=== PATIENT | female | born 1955 | race African-American/Black ===

== ENCOUNTER 2016-05-13 01:37 | Emergency (ER) | payer MEDICARE, MEDICAID ==
[~2016-05-13] VITALS: Ht 162.6 cm; Wt 81.6 kg
[~2016-05-13 01:37] MED LIST: ACETAMINOPHEN650 M4 ORAL; AMLODIPINE BESY10 MG ORAL; AMOXICILLI250 MG/5 M ORAL; ARTIFICIAL TEAR15 ML BOTH EYES; ATORVASTATIN CA10 MG ORAL; CATAPRES0.1 MG ORAL; CLOPIDOGREL75 MG ORAL; GABAPENTIN100 MG ORAL; GABAPENTIN400 MG ORAL; HYZAAR 50-12.51 EACH ORAL; IPRAT-ALBUT 0.5-3 ML IH; KEFLEX500 M1 ORAL; KEPPRA1000 MG ORAL; KEPPRA500 MG ORAL; LAMICTAL100 MG ORAL; LATANOPROST2.5 ML BOTH EYES; LEVETIRACETAM500 MG ORAL; LISINOPRIL2.5 MG ORAL; LISINOPRIL5 MG ORAL; MILK OF MA400 MG/51 ORAL; MINTOX SUSPENS355 ML PO; MIRTAZAPINE15 M3 ORAL; NAPROXEN500 M1 ORAL; NORVASC2.5 MG ORAL; PANTOPRAZOLE SO40 MG ORAL; PROAIR HFA8.5 GM INH; PROTONIX40 MG ORAL; TAB-A-VITE1 EACH ORAL; XANAX0.5 MG ORAL
--- NOTE | 2016-05-13 01:54 | Emergency Room Report ---
History of Present Illness General Chief Complaint: Pain Source: Patient, EMS Present Illness HPI Patient presents with severe right leg pain. She's had this pain in the past. She says that there might be oral medication for pain at the residential facility where she is. She claims that she was recently admitted for observation after having uncontrolled seizures. She does take her medication for seizures. She denies a recent seizure in the last 24-48 hours. She denies any trauma, fever, rashes. She's had pain like this before. 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 She resides at an SNF. She has RLS neuropathy R leg (per chart). No ARNOLD, fever, NVD, cough, dyspnea, chest pain, rashes, trauma. In past has had seizures. No evidence of recent seizure activity. Allergies: Coded Allergies: No Known Allergies (Unverified , 05/13/16) Patient History Past Medical History: see triage record, CVA/TIA, other - aneurism Past Surgical History: other - craneotomy Social History: Denies: alcohol use, drug use, smoking Social History Narrative SNF - NO Code Last Menstrual Period: UNK Now: No Reviewed Nursing Documentation: PMH: Agreed, PSxH: Agreed Nursing Documentation-PMH Hx Hypertension: Yes Hx Pacemaker: No Hx Asthma: No Hx COPD: No Hx Cancer: No Hx Gastrointestinal Problems: Yes - GASTRITIS, UTI Hx Dialysis: No - S/P CRANIOTOMY Hx Neurological Problems: Yes - DEPRESSION Hx Cerebrovascular Accident: Yes - RIGHT SIDED WEAKNESS Hx Seizures: Yes Review of Systems All Other Systems: negative except mentioned in HPI Physical Exam Vital Signs Date Time Temp Pulse Resp B/P Pulse Ox O2 Delivery O2 Flow Rate FiO2 05/13/16 01:42 97.5 76 18 137/102 95 Room Air Sp02 EP Interpretation: reviewed, normal General Appearance: well appearing, no apparent distress, GCS 15 Head: normocephalic Eyes: bilateral eye PERRL, bilateral eye normal inspection ENT: moist mucus membranes Neck: full range of motion, supple Respiratory: chest non-tender, lungs clear, normal breath sounds Cardiovascular #1: regular rate, rhythm, no edema, other - R foot with increased circulation, no erythema Cardiovascular #2: 2+ radial (R) Gastrointestinal: normal inspection, normal bowel sounds, non tender, no mass, non-distended Musculoskeletal: back normal, no calf tenderness, other - RUE contactures. Sl extensor contraction R foot Neurologic: alert, oriented x3, responsive, sensory intact - states feels R side but feels different, motor weakness - R sided Psychiatric: anxious Reflexes: 2+ knee (R), 2+ knee (L) Skin: warm/dry, other - see circ Medical Decision Making Diagnostic Impression: Primary Impression: Right leg pain Additional Impression: H/O craniotomy ER Course R leg pain - h/o restless leg syndrome. Leg exam more c/w reflex sympathetic dystrophy. Need eval with labs. No deform, so xrays not indicated (but will check pelvis). Exam against PE and cellulitis. Will treat with analgesia. Consider neuropathic pain. Exam more c/w reflex sympathetic dystrophy as opposed to restless leg syndrome. Labs unremarkable. Xrays, no deform. Patient rest calmly. No more pain. No medical emergency. Focus on symptomatic treatment. Patient stable for outpatient observation and treatment. Laboratory Tests Test 05/13/16 02:02 05/13/16 02:30 White Blood Count 9.0 K/UL (4.8-10.8) Red Blood Count 4.27 M/UL (4.20-5.40) Hemoglobin 13.5 G/DL (12.0-16.0) Hematocrit 40.0 % (37.0-47.0) Mean Corpuscular Volume 94 FL (80-99) Mean Corpuscular Hemoglobin 31.7 PG (27.0-31.0) H Mean Corpuscular Hemoglobin Concent 33.8 G/DL (32.0-36.0) Red Cell Distribution Width 11.8 % (11.6-14.8) Platelet Count 205 K/UL (150-450) Mean Platelet Volume 7.8 FL (6.5-10.1) Neutrophils (%) (Auto) 44.9 % (45.0-75.0) L Lymphocytes (%) (Auto) 42.1 % (20.0-45.0) Monocytes (%) (Auto) 9.6 % (1.0-10.0) Eosinophils (%) (Auto) 2.2 % (0.0-3.0) Basophils (%) (Auto) 1.2 % (0.0-2.0) Prothrombin Time 9.5 SEC (9.30-11.50) Prothrombin Time INR 0.9 (0.9-1.1) PTT 27 SEC (23-33) Sodium Level 140 mEQ/L (135-145) Potassium Level 4.7 mEQ/L (3.4-4.9) Chloride Level 98 mEQ/L (98-107) Carbon Dioxide Level 25 mEQ/L (20-30) Anion Gap 17 (5-15) H Blood Urea Nitrogen 12 mg/dL (7-23) Creatinine 0.8 mg/dL (0.5-0.9) Estimate Glomerular Filtration Rate > 60 mL/min (>60) Glucose Level 109 mg/dL (74-106) H Calcium Level 9.7 mg/dL (8.6-10.2) Total Bilirubin < 0.2 mg/dL (0.0-1.2) Aspartate Amino Transferase (AST) 21 U/L (5-40) Alanine Aminotransferase (ALT) 18 U/L (3-33) Alkaline Phosphatase 111 U/L (35-104) H Total Creatine Kinase 75 U/L (26-140) Troponin I < 0.30 ng/mL (<=0.30) Pro-B-Type Natriuretic Peptide 18 pg/mL (0-125) Total Protein 6.8 g/dL (6.6-8.7) Albumin 3.8 g/dL (3.5-5.2) Globulin 3.0 g/dL Albumin/Globulin Ratio 1.2 (1.0-2.7) Urine Color Pale yellow Urine Appearance Clear Urine pH 8 (4.5-8.0) Urine Specific [place] 1.010 (1.005-1.035) Urine Protein Negative (NEGATIVE) Urine Glucose (UA) Negative (NEGATIVE) Urine Ketones Negative (NEGATIVE) Urine Occult Blood Negative (NEGATIVE) Urine Nitrite Negative (NEGATIVE) Urine Bilirubin Negative (NEGATIVE) Urine Urobilinogen Normal MG/DL (0.0-1.0) Urine Leukocyte Esterase 1+ (NEGATIVE) H Urine RBC 0-2 /HPF (0 - 2) Urine WBC 2-4 /HPF (0 - 2) Urine Squamous Epithelial Cells Few /LPF (NONE/OCC) Urine Bacteria Few /HPF (NONE) EKG Diagnostic Results Rate: normal Rhythm: NSR ST Segments: no acute changes Rhythm Strip Diag. Results EP Interpretation: yes Rhythm: NSR, no PVC's, no ectopy Chest X-Ray Diagnostic Results EP Interpretation: Yes Findings: no consolidation, no effusion, no pneumothorax, no acute cardiopulmonary disease Number of Views: 1 Other X-Ray Diagnostic Results Other X-Ray Diagnostic Results : X-Ray Ordered: pelvis EP Interpretation: Yes Findings: no fractures, no dislocation, no soft tissue swelling, other - no unusual calcifications Number of Views: 1 Status: improved Disposition: XFER SNF Condition: Improved Scripts Tramadol Hcl* (ULTRAM*) 50 Mg Tablet 50 MG ORAL Q6H Y for For Pain, #10 TAB 0 Refills Prov: Jordi Lugo M.D. 05/13/16 Jordi Lugo M.D. May 13, 2016 01:54
[2016-05-13] MEDS ORDERED: Morphine Sulfate 2mg/ml Inj IVP ONE (02:00)
[2016-05-13] MEDS ORDERED: TRAZODONE HCL100 MG ORAL (02:05)
[2016-05-13 02:10] VITALS: BP 138/95
[2016-05-13 02:23] LABS: BASOPHILS % (AUTO) 1.2 % (0.0-2.0); EOSINOPHILS % (AUTO) 2.2 % (0.0-3.0); LYMPHOCYTES % (AUTO) 42.1 % (20.0-45.0); MEAN CORPUSCULAR HEMOGLOBIN 31.7 PG (27.0-31.0); MEAN CORPUSCULAR HGB CONC 33.8 G/DL (32.0-36.0); MEAN CORPUSCULAR VOLUME 94 FL (80-99); MEAN PLATELET VOLUME 7.8 FL (6.5-10.1); MONOCYTES % (AUTO) 9.6 % (1.0-10.0); NEUTROPHILS % (AUTO) 44.9 % (45.0-75.0); PLATELET COUNT 205 K/UL (150-450); RED BLOOD COUNT 4.27 M/UL (4.20-5.40); RED CELL DISTRIBUTION WIDTH 11.8 % (11.6-14.8)
[2016-05-13 02:26] LABS: INR 0.9 (0.9-1.1); PROTHROMBIN TIME 9.5 SEC (9.30-11.50)
[2016-05-13 02:37] LABS: ALANINE AMINOTRANSFERASE 18 U/L (3-33); ALBUMIN/GLOBULIN RATIO 1.2 (1.0-2.7); ANION GAP 17 (5-15); ASPARTATE AMINO TRANSFERASE 21 U/L (5-40); CALCIUM 9.7 mg/dL (8.6-10.2); CARBON DIOXIDE 25 mEQ/L (20-30); CHLORIDE 98 mEQ/L (98-107); CREATININE 0.8 mg/dL (0.5-0.9); GLOMERULAR FILTRATION RATE > 60 mL/min (>60); HEMOLYSIS 108; POTASSIUM 4.7 mEQ/L (3.4-4.9); SODIUM 140 mEQ/L (135-145); TOTAL PROTEIN 6.8 g/dL (6.6-8.7)
[2016-05-13 02:38] LABS: TROPONIN I < 0.30 ng/mL (<=0.30)
[2016-05-13 02:47] LABS: APPEARANCE,URINE CLEAR; KETONES,URINE NEGATIVE (NEGATIVE); LEUKOCYTE ESTERASE ,URINE 1+ (NEGATIVE); NITRITE,URINE NEGATIVE (NEGATIVE); PH,URINE 8 (4.5-8.0); PROTEIN,URINE NEGATIVE (NEGATIVE); UROBILINOGEN,URINE NORMAL MG/DL (0.0-1.0)
[2016-05-13 03:28] LABS: BACTERIA,URINE FEW /HPF; RBC,URINE 0-2 /HPF (0 - 2); SQUAMOUS EPITHELIAL CELL,UR FEW /LPF (NONE/OCC)
[2016-05-13 04:35] VITALS: BP 107/60
[2016-05-13] MEDS ORDERED: TRAMADOL HCL50 MG ORAL (05:40)
[2016-05-13 06:20] VITALS: BP 112/68
[2016-05-13 08:44] VITALS: BP 99/68
[2016-05-13 08:45] VITALS: BP 112/68
--- NOTE | 2016-05-13 19:41 | Cardiology Report ---
APPROVED REPORT EKG Measurement Heart [id number] CT [id number] [id number] Normal sinus rhythm Cannot rule out Anterior infarct, age undetermined Abnormal ECG
--- NOTE | 2016-05-15 15:54 | Diagnostic Imaging Report ---
Indications: Right-sided pelvic pain Technique: AP pelvis. Findings: Comparison: None No fracture, dislocation, joint space widening , lytic destruction, periosteal reaction , surrounding soft tissue swelling/foreign body/gas, or other acute changes are identified. Suggestion of disc space narrowing with marginal osteophyte formation lower lumbar spine. IMPRESSION: No evidence of acute abnormality Suggestion of degenerative spondylosis.
--- NOTE | 2016-05-15 15:54 | Diagnostic Imaging Report ---
Indications: Chest pain Technique: Portable AP chest Findings: Comparison: 03/02/2016 Inspiratory effort has improved. Cardiac silhouette remains upper limits of normal in size. Pulmonary vascular redistribution, bilateral interstitial prominence have decreased. Hazy opacity left lower lung has resolved. No pleural abnormalities demonstrated. Aortic arch calcification again noted. IMPRESSION: No current evidence of acute cardiopulmonary disease. Improvement in previous changes may be technical or represents resolution of mild congestive change, as well as resolution of left lung base atelectasis versus pneumonia
== END 2016-05-13 08:30 ==
LOC: EDUNIT# 01:37 → EDBD 01:37 → EMR 02:31
DX: M79.604 Pain in right leg (principal); G25.81 Restless legs syndrome; I69.851 Hemiplegia and hemiparesis following other cerebrovascular disease affecting right dominant side; I10 Essential (primary) hypertension; F32.9 Major depressive disorder, single episode, unspecified; G40.909 Epilepsy, unspecified, not intractable, without status epilepticus
CPT/HCPCS: 36415; 71010; 72170; 80053; 81003; 82550; 82962; 83880; 84484; 85025; 85610; 85730; 93005; 96374; 96375; 99284; J2270; J2405

== ENCOUNTER 2017-10-19 06:57 | Inpatient (IN) | payer MEDICARE, OTHER, MEDICAID ==
[~2017-10-19] VITALS: Ht 167.6 cm; Wt 86.0 kg
[~2017-10-19 06:57] MED LIST changes: +TRAMADOL HCL50 MG ORAL; +TRAZODONE HCL100 MG ORAL
[2017-10-19] MEDS ORDERED: ARTIFICIAL TEAR15 ML BOTH EYES (07:03)
[2017-10-19] MEDS ORDERED: FLUOXETINE HCL40 MG ORAL (07:03)
[2017-10-19] MEDS ORDERED: HYDROCHLOROTHIA25 MG ORAL (07:03)
[2017-10-19] MEDS ORDERED: WOMEN'S DAILY1 EACH PO (07:08)
[2017-10-19] MEDS ORDERED: DICLOFENAC SODI25 GM TOPIC (07:08)
[2017-10-19] MEDS ORDERED: PROAIR HFA8.5 GM INH (07:08)
[2017-10-19] MEDS ORDERED: LORazepam Inj 2mg/ml 1ml IV ONE (07:15)
[2017-10-19 07:31] VITALS: BP 168/85
[2017-10-19 07:47] LABS: ANION GAP 14 mmol/L (5-15); BLOOD UREA NITROGEN 9 mg/dL (7-18); CALCIUM 9.6 MG/DL (8.5-10.1); CARBON DIOXIDE 26 MMOL/L (21-32); CHLORIDE 100 MMOL/L (98-107); CREATININE 0.8 MG/DL (0.55-1.30); SODIUM 140 MMOL/L (136-145)
[2017-10-19 07:54] LABS: HEMATOCRIT 46.4 % (37.0-47.0); HEMOGLOBIN 15.9 G/DL (12.0-16.0); MEAN CORPUSCULAR VOLUME 90 FL (80-99); PLATELET COUNT 255 K/UL (150-450); RED BLOOD COUNT 5.16 M/UL (4.20-5.40); RED CELL DISTRIBUTION WIDTH 11.6 % (11.6-14.8); WHITE BLOOD COUNT 15.8 K/UL (4.8-10.8)
[2017-10-19 08:01] LABS: ALANINE AMINOTRANSFERASE 28 U/L (12-78); ALBUMIN 3.8 G/DL (3.4-5.0); ALBUMIN/GLOBULIN RATIO 0.8 (1.0-2.7); ALKALINE PHOSPHATASE 142 U/L (46-116); ASPARTATE AMINO TRANSFERASE 23 U/L (15-37); BILIRUBIN,TOTAL 0.3 MG/DL (0.2-1.0); CKMB 3.7 NG/ML (0.0-3.6); CREATINE KINASE 214 U/L (26-308); PHOSPHORUS 2.1 MG/DL (2.5-4.9)
[2017-10-19 08:04] LABS: APPEARANCE,URINE CLEAR; BILIRUBIN, URINE NEGATIVE (NEGATIVE); COLOR,URINE PALE YELLOW; GLUCOSE, URINE (UA) NEGATIVE (NEGATIVE); KETONES,URINE NEGATIVE (NEGATIVE); LEUKOCYTE ESTERASE ,URINE NEGATIVE (NEGATIVE); NITRITE,URINE NEGATIVE (NEGATIVE); PH,URINE 8 (4.5-8.0); PROTEIN,URINE 2+ (NEGATIVE); UROBILINOGEN,URINE NORMAL MG/DL (0.0-1.0)
[2017-10-19] MEDS ORDERED: cefTRIAXone 1 GM in NS 55 ML IVPB ONE (08:30)
--- NOTE | 2017-10-19 08:42 | Diagnostic Imaging Report ---
EXAM: XR Chest, 1 View CLINICAL HISTORY: SOB TECHNIQUE: Frontal view of the chest. COMPARISON: May 13, 2016. FINDINGS: Cardiac silhouette is within normal limits. Mild central vascular congestion. Low lung volumes. No focal consolidative process or pleural effusions. Osseous structures are unremarkable. IMPRESSION: Mild central vascular congestion.
[2017-10-19] MEDS ORDERED: cefTRIAXone 1 GM in NS 110 ML IVPB SCH (08:45)
[2017-10-19] MEDS ORDERED: DiphenhydrAMINE 50mg/ml Inj IVP ONE (09:00)
--- NOTE | 2017-10-19 09:51 | Diagnostic Imaging Report ---
History: PAIN Exam: CT HEAD Without Contrast Technique more: CTDI is 70.38 mGy and DLP is 1397 mGy-cm. Technique more: One or more of the following dose reduction techniques were used: automated exposure control, adjustment of the mA and/or kV according to patient size, use of iterative reconstruction technique. Comparison: 03/02/2016 FINDINGS: No intracranial hemorrhage, mass effect or CT evidence of acute infarct. The ventricles are unchanged in size, configuration or position. 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 Status post left sided craniotomy with areas of encephalomalacia and left Wallerian degeneration again noted. The visualized paranasal sinuses, mastoids and orbits are within limits. IMPRESSION: No intracranial hemorrhage, mass effect or CT evidence of acute infarct. The ventricles are unchanged in size, configuration or position. 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 Status post left sided craniotomy with areas of encephalomalacia and left Wallerian degeneration again noted.
--- NOTE | 2017-10-19 09:55 | Diagnostic Imaging Report ---
History: PAIN Exam: XR LEFT FOREARM 2 views Comparison: None available FINDINGS: No fracture. First carpal metacarpal joint osteoarthrosis. IMPRESSION: No fracture. First carpal metacarpal joint osteoarthrosis.
[2017-10-19 09:56] VITALS: BP_SYST 156; BP_SYST 168; BP_DIAS 78; BP_DIAS 80
[2017-10-19] MEDS ORDERED: Acetaminophen 650 MG SUPP RECTAL ONE ×2 (12:39→12:45)
[2017-10-19 13:01] VITALS: BP 159/76
[2017-10-19 13:50] VITALS: BP 165/95
--- NOTE | 2017-10-19 14:20 | Emergency Room Report ---
History of Present Illness General Chief Complaint: Multiple Trauma/Fall Source: Medical Record Present Illness HPI Patient is a 61-year-old female brought in by EMS after reported fall. Patient had prior history of CVA. Patient had been noted to have increased pain to the left upper extremity. The patient was reportedly found with increased pain to her left upper extremity by facility staff. She was sent to the hospital for further evaluation and treatment. Patient prior history of seizures Allergies: Coded Allergies: No Known Allergies (Unverified , 05/13/16) Patient History Reviewed Nursing Documentation: PMH: Agreed; PSxH: Agreed Nursing Documentation-PMH Hx Hypertension: Yes Hx Pacemaker: No Hx Asthma: No Hx COPD: No Hx Cancer: No Hx Gastrointestinal Problems: Yes - gaastritis Hx Dialysis: No - S/P CRANIOTOMY History Of Psychiatric Problem: Yes - depression Hx Cerebrovascular Accident: Yes - right sided weakness, heiplegia, hemiparesis Hx Seizures: Yes Review of Systems All Other Systems: limited - by mental status Physical Exam Vital Signs Date Time Temp Pulse Resp B/P (MAP) Pulse Ox O2 Delivery O2 Flow Rate FiO2 10/19/17 06:52 99.0 110 14 194/92 95 Room Air 99.0 10/19/17 07:31 2.0 Sp02 EP Interpretation: reviewed, normal General Appearance: normal inspection, alert, Chronically Ill Head: atraumatic ENT: normal ENT inspection, hearing grossly normal, normal voice Neck: normal inspection, full range of motion, supple, no bony tend Respiratory: normal inspection, lungs clear, normal breath sounds, no respiratory distress, no retraction, no wheezing Cardiovascular #1: regular rate, rhythm, edema - left upper extremity swelling and blistering Gastrointestinal: normal inspection, normal bowel sounds, non tender, soft, no guarding, no hernia Genitourinary: no CVA tenderness Musculoskeletal: normal inspection, back normal, normal range of motion Neurologic: normal inspection, alert, responsive, other - nonverbal Psychiatric: normal inspection, judgement/insight normal, mood/affect normal Skin: normal color, no rash, other Medical Decision Making Diagnostic Impression: Primary Impression: Multiple injuries due to trauma Additional Impressions: Generalized weakness UTI (urinary tract infection) Left upper extremity swelling ER Course The patient presented for recent fall. Differential diagnosis included was not limited to seizure, head injury, syncope fracture among others.Because of complexity of patient's case laboratory testing and imaging studies were ordered. CT of the head read by radiology showed large CVA without evident acute intracranial hemorrhage or mass effect.The patient was given IV Ativan for possible seizure activity.The patient showed some evidence of urinary tract infection.Dr. Filipe Mullen was contacted for inpatient management due to Covering physician for senior care Labs Test 10/19/17 07:10 10/19/17 07:40 10/19/17 09:45 White Blood Count 15.8 K/UL (4.8-10.8) Red Blood Count 5.16 M/UL (4.20-5.40) Hemoglobin 15.9 G/DL (12.0-16.0) Hematocrit 46.4 % (37.0-47.0) Mean Corpuscular Volume 90 FL (80-99) Mean Corpuscular Hemoglobin 30.8 PG (27.0-31.0) Mean Corpuscular Hemoglobin Concent 34.2 G/DL (32.0-36.0) Red Cell Distribution Width 11.6 % (11.6-14.8) Platelet Count 255 K/UL (150-450) Mean Platelet Volume 7.7 FL (6.5-10.1) Neutrophils (%) (Auto) % (45.0-75.0) Lymphocytes (%) (Auto) % (20.0-45.0) Monocytes (%) (Auto) % (1.0-10.0) Eosinophils (%) (Auto) % (0.0-3.0) Basophils (%) (Auto) % (0.0-2.0) Differential Total Cells Counted 100 Neutrophils % (Manual) 87 % (45-75) Lymphocytes % (Manual) 7 % (20-45) Monocytes % (Manual) 6 % (1-10) Eosinophils % (Manual) 0 % (0-3) Basophils % (Manual) 0 % (0-2) Band Neutrophils 0 % (0-8) Platelet Estimate Adequate Platelet Morphology Normal Sodium Level 140 MMOL/L (136-145) Potassium Level 3.0 MMOL/L (3.5-5.1) Chloride Level 100 MMOL/L (98-107) Carbon Dioxide Level 26 MMOL/L (21-32) Anion Gap 14 mmol/L (5-15) Blood Urea Nitrogen 9 mg/dL (7-18) Creatinine 0.8 MG/DL (0.55-1.30) Estimat Glomerular Filtration Rate > 60 mL/min (>60) Glucose Level 159 MG/DL (74-106) Calcium Level 9.6 MG/DL (8.5-10.1) Phosphorus Level 2.1 MG/DL (2.5-4.9) Magnesium Level 1.5 MG/DL (1.8-2.4) Total Bilirubin 0.3 MG/DL (0.2-1.0) Aspartate Amino Transf (AST/SGOT) 23 U/L (15-37) Alanine Aminotransferase (ALT/SGPT) 28 U/L (12-78) Alkaline Phosphatase 142 U/L (46-116) Total Creatine Kinase 214 U/L (26-308) Creatine Kinase MB 3.7 NG/ML (0.0-3.6) Creatine Kinase MB Relative Index 1.7 Troponin I 0.083 ng/mL (0.000-0.056) Pro-B-Type Natriuretic Peptide 204 pg/mL (0-125) Total Protein 8.4 G/DL (6.4-8.2) Albumin 3.8 G/DL (3.4-5.0) Globulin 4.6 g/dL Albumin/Globulin Ratio 0.8 (1.0-2.7) Urine Color Pale yellow Urine Appearance Clear Urine pH 8 (4.5-8.0) Urine Specific [place] 1.015 (1.005-1.035) Urine Protein 2+ (NEGATIVE) Urine Glucose (UA) Negative (NEGATIVE) Urine Ketones Negative (NEGATIVE) Urine Occult Blood 3+ (NEGATIVE) Urine Nitrite Negative (NEGATIVE) Urine Bilirubin Negative (NEGATIVE) Urine Urobilinogen Normal MG/DL (0.0-1.0) Urine Leukocyte Esterase Negative (NEGATIVE) Urine RBC 15-20 /HPF (0 - 2) Urine WBC 2-4 /HPF (0 - 2) Urine Squamous Epithelial Cells Occasional /LPF Urine Amorphous Sediment Few /LPF (NONE) Urine Bacteria Few /HPF (NONE) Lactic Acid Level 1.40 mmol/L (0.66-2.22) Last Vital Signs Date Time Temp Pulse Resp B/P (MAP) Pulse Ox O2 Delivery O2 Flow Rate FiO2 10/19/17 13:42 100.1 97 18 154/78 95 Room Air 10/19/17 13:01 2.0 Status: improved Disposition: ADMITTED INPATIENT Condition: Stable Referrals: NON PHYSICIAN (PCP) Dhaval Cross MD Oct 19, 2017 14:20
--- NOTE | 2017-10-19 15:19 | History & Physical ---
History and Physical History & Physicial Patient is a 61-year-old female brought in by EMS after reported fall. Patient had prior history of CVA. Patient had been noted to have increased pain to the left upper extremity. The patient was reportedly found with increased pain to her left upper extremity by facility staff. She was sent to the hospital for further evaluation and treatment. Patient prior history of seizures PH Significant for : seizure, hypertension, previous craniotomy over the left side leading to right-sided weakness, asthma, high cholesterol, and coronary artery disease. The patient is also on antiseizure medication. Current: Encephalopathy leukocytosis, etiology?? abnormal lytes and chemistries K Mag Phos High Lactate Left wrist and fore head trauma elevated troponin Plan NPO IV fluid K Phos Mag supp ST PT eval continue anti Sz meds # [id number] SUE OCHOA Oct 19, 2017 15:19
[2017-10-19] MEDS: Nitroglycerin Patch 0.4mg TDERMAL SCH (16:31)
[2017-10-19] MEDS: Lisinopril 2.5mg tab ORAL SCH (18:12)
--- NOTE | 2017-10-19 18:30 | History and Physical Report ---
DATE OF ADMISSION: 10/19/2017 HISTORY OF PRESENT ILLNESS: The patient is a 61-year-old resident of [facility] who was sent to our emergency room reportedly that the patient fell, however, the details of the fall are not available. The patient has a prior history of multiple medical problems and somewhat bed-ridden and at this time is unable to give any history. So, all the data was taken from the records and her previous admission from 2016. PAST MEDICAL HISTORY: Past history of the patient appears to be significant for history of seizure disorder, hypertension, previous craniotomy over the left side leading to right-sided weakness, history of asthma, history of high cholesterol, and coronary artery disease. MEDICATIONS: The patient's medication include anti-seizure medication. PHYSICAL EXAMINATION: GENERAL: At this time, the patient is in room 210, bed 1, and is awake, not in any distress, but not verbal. VITAL SIGNS: T max is 100.1, pulse is 110, blood pressure is 154/78, respiratory rate is 18, and in room air pulse oximetry is 95%. HEENT: Head, craniotomy over the left side, however, otherwise normocephalic. Eyes not icteric. NECK: Rigid to all directions. LUNGS: Poor inspiratory effort. Decreased breath sounds over the bases. HEART: Regular. ABDOMEN: Soft. Bowel sounds present. Manuel catheter in place. NEURO: The patient has right-sided weakness. The right wrist is somewhat contracted. Over the left side, the wrist area is slightly tender, red, and also over the left side of the forehead when touched, it appears that there is a bruise and tenderness in the area. It appears that when the patient fell was over the left side. LABORATORY RESULTS: Glucose 159. Lactate 3.7. Potassium 3. BUN and creatinine normal. Phosphorus low at 2.1. Magnesium low at 1.5. Albumin 3.8. Troponin 0.083. The urine has 20 white blood cells, 4 blood cells, and negative leukocyte esterase. IMPRESSION: This 61-year-old is admitted through emergency room with encephalopathy, history of fall and left-sided trauma, leukocytosis, mild elevation of troponin, abnormal electrolytes and chemistries including hypokalemia, hypomagnesemia, and hypophosphatemia, high lactate level on admission, which normalized a couple of hours later after recheck, and left wrist and forehead trauma when the x-rays was not suggestive of any fracture and the head CT results did not show any intracranial hemorrhage, mass effect, or evidence of acute infarct. PLAN: Plan at this point is to keep the patient NPO except medications. Continue anti-seizure medication. Continue blood pressure medication. IV hydration 75 mL an hour. Potassium, phosphorus, and magnesium supplements. Gastric support. Waiting for urine cultures, which were done in the emergency room. Monitor the electrolytes, white blood cells, and order a speech therapy evaluation and bedside swallow studies, and according to how the patient's condition evolves, we will make the proper changes in our future management. Filipe Mullen M.D. DR: JACQUI JOB#: [id number] CC:
[2017-10-19 20:00] VITALS: BP 139/83
[2017-10-19] MEDS ORDERED: Potassium Phosphate 20 MM in NS 275 ML IV SCH (20:00)
[2017-10-19] MEDS: Heparin 5000 units/ml inj SUBQ SCH (20:36)
[2017-10-20] VITALS: BP 135/87
[2017-10-20 04:00] VITALS: BP 131/80
[2017-10-20 08:00] VITALS: BP 128/77
[2017-10-20] MEDS: Lisinopril 2.5mg tab ORAL SCH ×2 (08:43→18:21)
[2017-10-20] MEDS: Heparin 5000 units/ml inj SUBQ SCH ×2 (08:44→20:51)
[2017-10-20 08:58] LABS: BASOPHILS % (AUTO) 0.4 % (0.0-2.0); EOSINOPHILS % (AUTO) 0.2 % (0.0-3.0); HEMATOCRIT 42.1 % (37.0-47.0); HEMOGLOBIN 14.5 G/DL (12.0-16.0); LYMPHOCYTES % (AUTO) 12.6 % (20.0-45.0); MEAN CORPUSCULAR VOLUME 90 FL (80-99); MONOCYTES % (AUTO) 10.5 % (1.0-10.0); NEUTROPHILS % (AUTO) 76.3 % (45.0-75.0); PLATELET COUNT 218 K/UL (150-450); RED BLOOD COUNT 4.66 M/UL (4.20-5.40); RED CELL DISTRIBUTION WIDTH 11.6 % (11.6-14.8); WHITE BLOOD COUNT 14.9 K/UL (4.8-10.8)
[2017-10-20 09:07] LABS: ALANINE AMINOTRANSFERASE 22 U/L (12-78); ALBUMIN/GLOBULIN RATIO 0.8 (1.0-2.7); ALKALINE PHOSPHATASE 109 U/L (46-116); ANION GAP 11 mmol/L (5-15); ASPARTATE AMINO TRANSFERASE 23 U/L (15-37); BILIRUBIN,TOTAL 0.6 MG/DL (0.2-1.0); BLOOD UREA NITROGEN 8 mg/dL (7-18); CALCIUM 8.9 MG/DL (8.5-10.1); CARBON DIOXIDE 27 MMOL/L (21-32); CHLORIDE 104 MMOL/L (98-107); CHOLESTEROL 156 MG/DL (< 200); CREATINE KINASE 272 U/L (26-308); CREATININE 0.6 MG/DL (0.55-1.30); FERRITIN 92 NG/ML (8-388); GAMMA GLUTAMYL TRANSPEPTIDASE 63 U/L (5-85); HDL CHOLESTEROL 63 MG/DL (40-60); PHOSPHORUS 2.2 MG/DL (2.5-4.9); SODIUM 141 MMOL/L (136-145); TRIGLYCERIDES 54 MG/DL (30-150)
[2017-10-20 09:34] LABS: % IRON SATURATION 13 % (15-50); IRON 26 ug/dL (50-175); TOTAL IRON BINDING CAPACITY 202 ug/dL (250-450)
[2017-10-20] MEDS ORDERED: Tubing IV Secondary IV ONE (10:59)
[2017-10-20] MEDS ORDERED: NS 275ml ONE (10:59)
[2017-10-20] MEDS ORDERED: NS Irrig 1000ml ONE (10:59)
[2017-10-20] MEDS ORDERED: Potassium Phosphate 30 MM in NS 275 ML IV SCH (11:00)
[2017-10-20 12:00] VITALS: BP 172/90
--- NOTE | 2017-10-20 12:16 | General Progress Note ---
Assessment/Plan Problem List: (1) Left upper extremity swelling ICD Codes: M79.89 - Other specified soft tissue disorders SNOMED: 372753848 (2) Acute encephalopathy ICD Codes: G93.40 - Encephalopathy, unspecified SNOMED: 98770436, 131077834 (3) Electrolyte abnormality ICD Codes: E87.8 - Other disorders of electrolyte and fluid balance, not elsewhere classified SNOMED: 055619375 (4) Right sided weakness ICD Codes: R53.1 - Weakness SNOMED: 668642583 (5) UTI (urinary tract infection) ICD Codes: N39.0 - Urinary tract infection, site not specified SNOMED: 16264911 Status: other - improved Status Narrative This 61-year-old is admitted through emergency room with encephalopathy, history of fall and left-sided trauma, leukocytosis, mild elevation of troponin, abnormal electrolytes and chemistries including hypokalemia, hypomagnesemia, and hypophosphatemia, high lactate level on admission, which normalized a couple of hours later after recheck, and left wrist and forehead trauma when the x-rays was not suggestive of any fracture and the head CT results did not show any intracranial hemorrhage, mass effect, or evidence of acute infarct. MS improved Assessment/Plan DC IV Start PO diet Urine culture DC marvin resume Rocephin from ER Gastric support Monitor WBSc and serum K K and Phos and Mag supp as needed PT OT St pain management Subjective ROS Limited/Unobtainable: No Constitutional: Reports: malaise, other - now verbal Allergies: Coded Allergies: No Known Allergies (Unverified , 05/13/16) Objective Last 24 Hour Vital Signs Date Time Temp Pulse Resp B/P (MAP) Pulse Ox O2 Delivery O2 Flow Rate FiO2 10/20/17 08:43 128/77 10/20/17 08:42 99 128/77 10/20/17 08:00 98.1 99 18 128/77 98 Room Air 98.1 10/20/17 07:57 100 10/20/17 04:00 97 10/20/17 04:00 96.6 95 19 131/80 94 Room Air 96.6 10/20/17 00:00 94 10/20/17 00:00 97.3 94 19 135/87 94 Room Air 97.3 10/19/17 20:00 97 10/19/17 20:00 98.6 98 19 139/83 96 Room Air 98.6 10/19/17 18:12 165/95 10/19/17 18:12 92 165/10/19/17 16:31 165/10/19/17 16:26 92 10/19/17 13:50 100.1 102 18 165/95 98 Room Air 100.1 10/19/17 13:42 100.1 97 18 154/78 95 Room Air 10/19/17 13:01 100.1 97 18 159/76 97 Room Air 2.0 100.1 10/19/17 12:40 100.1 Intake and Output 10/19/17 10/20/17 19:00 07:00 Intake Total 1000 ml 1163.224 ml Output Total 500 ml Balance 1000 ml 663.224 ml Intake IV Total 1000 ml 1163.224 ml Output Urine Total 500 ml Laboratory Tests 10/20/17 07:30: White Blood Count 14.9H, Red Blood Count 4.66, Hemoglobin 14.5, Hematocrit 42.1 , Mean Corpuscular Volume 90, Mean Corpuscular Hemoglobin 31.1H, Mean Corpuscular Hemoglobin Concent 34.4, Red Cell Distribution Width 11.6, Platelet Count 218, Mean Platelet Volume 7.6, Neutrophils (%) (Auto) 76.3H, Lymphocytes ( %) (Auto) 12.6L, Monocytes (%) (Auto) 10.5H, Eosinophils (%) (Auto) 0.2, Basophils (%) (Auto) 0.4, Sodium Level 141, Potassium Level 3.0L, Chloride Level 104, Carbon Dioxide Level 27, Anion Gap 11, Blood Urea Nitrogen 8, Creatinine 0.6, Estimat Glomerular Filtration Rate > 60, Glucose Level 144H, Hemoglobin A1c 6.0, Uric Acid 2.8, Calcium Level 8.9, Phosphorus Level 2.2L, Magnesium Level 2.2, Iron Level 26L, Total Iron Binding Capacity 202L, Percent Iron Saturation 13L, Unsaturated Iron Binding 176, Ferritin 92, Total Bilirubin 0.6, Gamma Glutamyl Transpeptidase 63, Aspartate Amino Transf (AST/SGOT) 23, Alanine Aminotransferase (ALT/SGPT) 22, Alkaline Phosphatase 109, Total Creatine Kinase 272, Troponin I 0.076H, Pro-B-Type Natriuretic Peptide 664H, Total Protein 7.0, Albumin 3.0L, Globulin 4.0, Albumin/Globulin Ratio 0.8L, Triglycerides Level 54, Cholesterol Level 156, LDL Cholesterol 89, HDL Cholesterol 63H, Cholesterol/HDL Ratio 2.5L, Lipase 65L, Vitamin B12 Level 1061H , Folate 43.1, Thyroid Stimulating Hormone (TSH) 1.935 Height (Feet): 5 Height (Inches): 6.00 Weight (Pounds): 170 General Appearance: mild distress, other - wants marvin out Cardiovascular: regular rhythm, tachycardia Respiratory/Chest: decreased breath sounds Abdomen: soft Neurologic: other - right rosie SUE OCHOA Oct 20, 2017 12:16
[2017-10-20] MEDS ORDERED: traMADol 50mg tab ORAL PRN (13:00)
--- NOTE | 2017-10-20 13:57 | Consultation ---
Consult Note Consult Note NEUROLOGY CONSULTATION REQUESTING PHYSICIAN: Filipe Mullen M.D. HISTORY: Ms. 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 I had evaluated her in August 2015 for a breakthrough generalized tonic-clonic seizure. A that time she did have a CT scan of the brain performed, which revealed no acute pathology but revealed a large area of encephalomalacia in the left fronto-temporal area. She was on multiple antiseizure medicines Neurontin, Lamictal, and Keppra in low doses. She was stabilized in the hospital, given therapeutic doses of Keppra and Lamictal and then sent back to her SNF. On 03/02/16 she was readmitted for an episode of unresponsiveness while she was sitting in a wheelchair. It was unclear as to what exactly the episode of unresponsiveness represented. It was felt that it could have been a seizure or syncopal event. She was re-admitted on 10/19/17 from her snf for a history of a fall and left-sided trauma, leukocytosis, mild elevation of troponin, abnormal electrolytes and chemistries including hypokalemia, hypomagnesemia, and hypophosphatemia, high lactate level and left wrist and forehead trauma. X-rays were not suggestive of any fracture and the head CT results did not show any intracranial hemorrhage, mass effect, or evidence of acute infarct. This consultation was requested by Dr. Mullen to evaluate the patient neurologically. Ms. Haro was oblivious as to why she was here, and could not give me any further history. PAST MEDICAL HISTORY: Significant for high blood pressure, aneurysmal rupture, for which she had to have a left-sided craniotomy, and a seizure disorder. FAMILY HISTORY: Significant for high blood pressure in other family members. PERSONAL HISTORY: Home: She lives in a snf. Work: She is disabled. Habits: There is no history of alcohol, tobacco, or illicit drug use at this point in time. PHYSICAL EXAMINATION: GENERAL: She is a well-developed, well-nourished, black lady, lying in bed, in no acute distress. VITAL SIGNS: Pulse 99/minute, blood pressure 128/77 mmHg, respirations 18/minute, and temperature 98.1 degrees Fahrenheit. HEAD: Normocephalic and atraumatic with left frontotemporal craniotomy scar. EENT: Benign. NECK: No neck rigidity was observed. NEUROLOGICAL EXAMINATION: MENTAL STATUS EXAMINATION: She was awake and alert. She was oriented to self only. She was significantly aphasic, making further mental status testing difficult. SPEECH: She had a mild dysarthria. LANGUAGE: She had an anterior > posterior aphasia. CRANIAL NERVE EXAMINATION: II: She had a right visual field deficit. III, IV & : External ocular movements were full and the pupils 3 mm in diameter, equal, round, regular, and reactive to light. V: She had normal facial sensations and the temporales, masseters, and pterygoids functioned normally. VII: She had right VII central facial paresis. VIII: She was able to hear well and had no nystagmus. IX: The palate moved symmetrically on phonation. X: She had no hoarseness of voice. XI: The sternocleidomastoids and trapezii functioned normally. XII: The tongue was in the midline without any fasciculations or atrophy. MOTOR SYSTEM: The tone was normal on the left side and increased with spasticity on the right side. Examination of muscle mass revealed significant wasting of the right upper extremity. Examination of power revealed G 5/5 power on the left side. On the right side, she had G 0/5 power in the upper extremity and G 4/5 power in the lower extremity except for G 3/5 in the iliopsoas.. SENSORY EXAMINATION: She complained of decreased sensations on the right. REFLEXES: 2+ on the right side and 1+ on the left side, at the biceps, triceps, brachioradialis, and knees. 0 at both ankles. The plantar response was extensor on the right and flexor on the left. COORDINATION: She performed well on [id number]-yovv and eegb-ms-kbvw testing on the left side. She was unable to perform on the right side. STANCE & GAIT: Could not be tested. DIAGNOSTIC IMPRESSION: 1. Ms. 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 She was hospitalized on 10/19/17 for a fall and left-sided trauma, leukocytosis, mild elevation of troponin, abnormal electrolytes and chemistries including hypokalemia, hypomagnesemia, and hypophosphatemia, high lactate level and left wrist and forehead trauma. 2. On neurological examination, at this time, she is significantly aphasic, and has cognitive problems. She also has a right hemiparesis involving the face, upper and lower extremities and brisker reflexes on the right side compared to the left with an extensor plantar response on the right side. She also has a right visual field deficit and a right hemisensory deficit. 3. A CT scan of the brain reveals a large area of encephalomalacia involving the left frontal and temporal regions - this is very similar to a CT of the brain done in February 2016. 4. The patient's history and neurologic examination are most compatible with a prior cerebral injury and a fall recently with no significant injury. The alteration in her mental state was most probably due to electrolyte imbalances and possibly an acute infectious process. RECOMMENDATIONS: 1. Agree with management thus far. 2. Continue correction of metabolic imbalances and infection. 3. Continue Keppra 1000 mg q.12 hours. 4. Continue lamotrigine 100 mg q.12 hours. 5. Depending on how the patient fares over the next day, further recommendations will be given. Thank you for entrusting me with the care of Ms. Haro. I shall follow her with you. Antelmo Foster M.D., M.S.P.H. Neurologist & Clinical Neurophysiologist ANTELMO FOSTER Oct 20, 2017 13:57
[2017-10-20] MEDS ORDERED: cefTRIAXone 1 GM in NS 55 ML IVPB SCH (14:00)
[2017-10-20 16:00] VITALS: BP 121/65
[2017-10-20] MEDS: Nitroglycerin Patch 0.4mg TDERMAL SCH (16:36)
[2017-10-20 20:00] VITALS: BP 101/65
[2017-10-20] MEDS ORDERED: Iron Sucrose 200 MG in NS 110 ML IV SCH (21:00)
[2017-10-21] VITALS: BP 113/31
[2017-10-21 04:00] VITALS: BP 99/63
[2017-10-21 07:20] LABS: EOSINOPHILS % (AUTO) 2.7 % (0.0-3.0); HEMATOCRIT 38.4 % (37.0-47.0); HEMOGLOBIN 13.1 G/DL (12.0-16.0); LYMPHOCYTES % (AUTO) 23.5 % (20.0-45.0); MEAN CORPUSCULAR VOLUME 91 FL (80-99); MONOCYTES % (AUTO) 10.2 % (1.0-10.0); NEUTROPHILS % (AUTO) 62.5 % (45.0-75.0); PLATELET COUNT 186 K/UL (150-450); RED BLOOD COUNT 4.21 M/UL (4.20-5.40); RED CELL DISTRIBUTION WIDTH 11.8 % (11.6-14.8); WHITE BLOOD COUNT 8.8 K/UL (4.8-10.8)
[2017-10-21 07:40] LABS: ALANINE AMINOTRANSFERASE 18 U/L (12-78); ALBUMIN 2.6 G/DL (3.4-5.0); ALBUMIN/GLOBULIN RATIO 0.7 (1.0-2.7); ALKALINE PHOSPHATASE 90 U/L (46-116); ANION GAP 7 mmol/L (5-15); ASPARTATE AMINO TRANSFERASE 19 U/L (15-37); BILIRUBIN,TOTAL 0.6 MG/DL (0.2-1.0); BLOOD UREA NITROGEN 13 mg/dL (7-18); CALCIUM 8.3 MG/DL (8.5-10.1); CARBON DIOXIDE 28 MMOL/L (21-32); CHLORIDE 111 MMOL/L (98-107); CREATININE 0.6 MG/DL (0.55-1.30); PHOSPHORUS 2.6 MG/DL (2.5-4.9); POTASSIUM 3.3 MMOL/L (3.5-5.1); SODIUM 145 MMOL/L (136-145)
[2017-10-21 08:00] VITALS: BP 95/54
--- NOTE | 2017-10-21 08:26 | Physician Query ---
--------- THIS DOCUMENT IS A PERMANENT PART OF THE MEDICAL RECORD --------- PLEASE COMPLETE THE DOCUMENT BEFORE SIGNING Dear Dr. Mullen Date: 10/21/2017 Executive Assistant To President/CDS Name: Laura brower Executive Assistant To President/CDS Phone No.:[phone] Exercise your independent professional judgment when responding to query. Question asked do not imply a particular answer is desired/expected Clinical Documentation States: Patient admitted with Encephalopathy and UTI. Clinical Findings Show: WBC: 15.8, Heart rate: 102, Temperature: 100.1, Lactate : 3.70 Antibiotics: Ceftriaxone Please clarify the diagnosis for above findings: [ *] Sepsis [ ] Sepsis with organ dysfunction [ ] SIRS [ ] SIRS with organ dysfunction [ ] Septic Shock [ ] Other: [ ] Clinically Undeterminable Present on admission? [*] Yes [] No [] Clinically undeterminable Criteria for Sepsis* Sepsis: Presence of 1 or more criteria in this row. Positive cultures (but not required) or WBCs present in otherwise sterile fluid: blood, urine, sputum, CSF , etc.? Prescribed anti-infective therapy: antibiotic, antifungal, and other? Documentation of pneumonia: positive x-ray or clinical presentation? Perforated viscus: perforation of a hollow organ, e.g. bowel? SIRS: Presence of > 2 criteria in this row Temperature: > 100.4 F. or < 96.8 F. Heart rate: > 90 bpm Respiratory rate: > 20/min. WBC count: > 12,000/mm2 < 4,000/mm2 > 10% bands Please also document in your Progress Notes and/or Discharge Summary and indicate if the condition was present on admission. MTDD
[2017-10-21] MEDS: Heparin 5000 units/ml inj SUBQ SCH ×2 (08:55→20:51)
[2017-10-21] MEDS: cefTRIAXone 1 GM in NS 55 ML IVPB SCH (08:59)
[2017-10-21] MEDS: Lisinopril 2.5mg tab ORAL SCH (09:00)
--- NOTE | 2017-10-21 09:14 | General Progress Note ---
Assessment/Plan Problem List: (1) Left upper extremity swelling ICD Codes: M79.89 - Other specified soft tissue disorders SNOMED: 662055528 (2) Acute encephalopathy ICD Codes: G93.40 - Encephalopathy, unspecified SNOMED: 21898679, 862409863 (3) Electrolyte abnormality ICD Codes: E87.8 - Other disorders of electrolyte and fluid balance, not elsewhere classified SNOMED: 830568990 (4) Right sided weakness ICD Codes: R53.1 - Weakness SNOMED: 866735308 (5) UTI (urinary tract infection) ICD Codes: N39.0 - Urinary tract infection, site not specified SNOMED: 88169664 (6) Sepsis ICD Codes: A41.9 - Sepsis, unspecified organism SNOMED: 93647736 Status: stable Status Narrative BP 90 to 100 syst Assessment/Plan adjust BP meds Start PO diet Urine culture DC marvin resume Rocephin from ER Gastric support Monitor WBSc and serum K K and Phos and Mag supp as needed PT OT St pain management ? DC in am Subjective ROS Limited/Unobtainable: No Constitutional: Reports: malaise Allergies: Coded Allergies: No Known Allergies (Unverified , 05/13/16) Objective Last 24 Hour Vital Signs Date Time Temp Pulse Resp B/P (MAP) Pulse Ox O2 Delivery O2 Flow Rate FiO2 10/21/17 09:00 95/54 10/21/17 04:00 97.7 85 20 99/63 92 Room Air 97.7 85 10/21/17 03:32 75 10/21/17 00:00 98.2 83 18 113/31 100 Room Air 98.2 83 10/20/17 23:31 73 10/20/17 20:13 79 10/20/17 20:00 98.4 87 18 101/65 98.4 10/20/17 18:21 121/65 10/20/17 16:36 121/65 10/20/17 16:00 99.6 98 20 121/65 96 Room Air 99.6 10/20/17 15:20 87 10/20/17 12:00 99.1 104 22 172/90 96 Room Air 99.1 10/20/17 11:53 103 Intake and Output 10/20/17 10/21/17 19:00 07:00 Intake Total 600 ml Output Total 450 ml 251 ml Balance 150 ml -251 ml Intake Oral 600 ml Output Urine Total 450 ml 251 ml Laboratory Tests 10/21/17 06:48: White Blood Count 8.8, Red Blood Count 4.21, Hemoglobin 13.1, Hematocrit 38.4, Mean Corpuscular Volume 91, Mean Corpuscular Hemoglobin 31.2H, Mean Corpuscular Hemoglobin Concent 34.2, Red Cell Distribution Width 11.8, Platelet Count 186, Mean Platelet Volume 7.6, Neutrophils (%) (Auto) 62.5, Lymphocytes (%) (Auto) 23.5, Monocytes (%) (Auto) 10.2H, Eosinophils (%) (Auto) 2.7, Basophils (%) ( Auto) 1.0, Sodium Level 145, Potassium Level 3.3L, Chloride Level 111H, Carbon Dioxide Level 28, Anion Gap 7, Blood Urea Nitrogen 13, Creatinine 0.6, Estimat Glomerular Filtration Rate > 60, Glucose Level 111H, Calcium Level 8.3L, Phosphorus Level 2.6, Magnesium Level 2.2, Total Bilirubin 0.6, Aspartate Amino Transf (AST/SGOT) 19, Alanine Aminotransferase (ALT/SGPT) 18, Alkaline Phosphatase 90, Total Protein 6.4, Albumin 2.6L, Globulin 3.8, Albumin/Globulin Ratio 0.7L Height (Feet): 5 Height (Inches): 6.00 Weight (Pounds): 170 General Appearance: no apparent distress, other - more responsive Respiratory/Chest: lungs clear Abdomen: soft Extremities: other - no change Neurologic: other - right rosie SUE OCHOA Oct 21, 2017 09:14
[2017-10-21] MEDS ORDERED: Sodium Chloride 500ML 500 ML IV ONE (09:20)
[2017-10-21 12:00] VITALS: BP 127/70
[2017-10-21] MEDS: Nitroglycerin Patch 0.4mg TDERMAL SCH (15:52)
[2017-10-21 16:00] VITALS: BP 122/70
--- NOTE | 2017-10-21 19:47 | Neurology Progress Note ---
Interim History Interim History Interim History Ms. Haro feels better. The mind is clearer. She feels stronger. She is able to express herself better. She denies any new neurologic symptoms. She specifically denies any increased weakness, numbness, visual problems or speech problems. Review of Systems Neuro Review of Systems Benign. Objective Physical Exam Last Vital Signs Date Time Temp Pulse Resp B/P (MAP) Pulse Ox O2 Delivery O2 Flow Rate FiO2 10/21/17 16:00 97.7 90 20 122/70 95 Room Air 97.7 85 10/19/17 13:01 2.0 Laboratory Tests Test 10/21/17 06:48 White Blood Count 8.8 K/UL (4.8-10.8) Red Blood Count 4.21 M/UL (4.20-5.40) Hemoglobin 13.1 G/DL (12.0-16.0) Hematocrit 38.4 % (37.0-47.0) Mean Corpuscular Volume 91 FL (80-99) Mean Corpuscular Hemoglobin 31.2 PG (27.0-31.0) H Mean Corpuscular Hemoglobin Concent 34.2 G/DL (32.0-36.0) Red Cell Distribution Width 11.8 % (11.6-14.8) Platelet Count 186 K/UL (150-450) Mean Platelet Volume 7.6 FL (6.5-10.1) Neutrophils (%) (Auto) 62.5 % (45.0-75.0) Lymphocytes (%) (Auto) 23.5 % (20.0-45.0) Monocytes (%) (Auto) 10.2 % (1.0-10.0) H Eosinophils (%) (Auto) 2.7 % (0.0-3.0) Basophils (%) (Auto) 1.0 % (0.0-2.0) Sodium Level 145 MMOL/L (136-145) Potassium Level 3.3 MMOL/L (3.5-5.1) L Chloride Level 111 MMOL/L (98-107) H Carbon Dioxide Level 28 MMOL/L (21-32) Anion Gap 7 mmol/L (5-15) Blood Urea Nitrogen 13 mg/dL (7-18) Creatinine 0.6 MG/DL (0.55-1.30) Estimat Glomerular Filtration Rate > 60 mL/min (>60) Glucose Level 111 MG/DL (74-106) H Calcium Level 8.3 MG/DL (8.5-10.1) L Phosphorus Level 2.6 MG/DL (2.5-4.9) Magnesium Level 2.2 MG/DL (1.8-2.4) Total Bilirubin 0.6 MG/DL (0.2-1.0) Aspartate Amino Transf (AST/SGOT) 19 U/L (15-37) Alanine Aminotransferase (ALT/SGPT) 18 U/L (12-78) Alkaline Phosphatase 90 U/L (46-116) Total Protein 6.4 G/DL (6.4-8.2) Albumin 2.6 G/DL (3.4-5.0) L Globulin 3.8 g/dL Albumin/Globulin Ratio 0.7 (1.0-2.7) L Neurologic Exam Objective PHYSICAL EXAMINATION: GENERAL: She is a well-developed, well-nourished, black lady, lying in bed, in no acute distress. HEAD: Normocephalic and atraumatic with left frontotemporal craniotomy scar. EENT: Benign. NECK: No neck rigidity was observed. NEUROLOGICAL EXAMINATION: MENTAL STATUS EXAMINATION: She was awake and alert. She was oriented to self, September 2017 and hospital. She did not know the exact date and the name of the hospital. She was significantly aphasic, making further mental status testing difficult. SPEECH: She had a mild dysarthria. LANGUAGE: She had an anterior > posterior aphasia. CRANIAL NERVE EXAMINATION: II: She had a right visual field deficit. III, IV & : External ocular movements were full and the pupils 3 mm in diameter, equal, round, regular, and reactive to light. V: She had normal facial sensations and the temporales, masseters, and pterygoids functioned normally. VII: She had right VII central facial paresis. VIII: She was able to hear well and had no nystagmus. IX: The palate moved symmetrically on phonation. X: She had no hoarseness of voice. XI: The sternocleidomastoids and trapezii functioned normally. XII: The tongue was in the midline without any fasciculations or atrophy. MOTOR SYSTEM: The tone was normal on the left side and increased with spasticity on the right side. Examination of muscle mass revealed significant wasting of the right upper extremity. Examination of power revealed G 5/5 power on the left side. On the right side, she had G 0/5 power in the upper extremity and G 4/5 power in the lower extremity except for G 3/5 in the iliopsoas. SENSORY EXAMINATION: She complained of altered sensations on the right. REFLEXES: 2+ on the right side and 1+ on the left side, at the biceps, triceps, brachioradialis, and knees. 0 at both ankles. The plantar response was extensor on the right and flexor on the left. COORDINATION: She performed well on [id number] and [id number] testing on the left side. She was unable to perform on the right side. STANCE & GAIT: Could not be tested. Impression/Recommendations Diagnostic Impression 1. Ms. 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 She was hospitalized on 10/19/17 for a fall and left-sided trauma, leukocytosis, mild elevation of troponin, abnormal electrolytes and chemistries including hypokalemia, hypomagnesemia, and hypophosphatemia, high lactate level and left wrist and forehead trauma. 2. She feels better today. The mind is clearer. She feels stronger. She has not noted any new neurologic symptoms. 3. On neurological examination, at this time, she is significantly aphasic, and has cognitive problems - however her cognitive function is better today. She also has a right hemiparesis involving the face, upper and lower extremities and brisker reflexes on the right side compared to the left with an extensor plantar response on the right side. She also has a right visual field deficit and a right hemisensory deficit. 4. A CT scan of the brain reveals a large area of encephalomalacia involving the left frontal and temporal regions - this is very similar to a CT of the brain done in February 2016. 5. The patient's history and neurologic examination are most compatible with a prior cerebral injury and a fall recently with no significant injury. The alteration in her mental state was most probably due to electrolyte imbalances and possibly an acute infectious process - and is improving. Recommendations 1. Continue present management. 2. Continue correction of metabolic imbalances and infection. 3. Continue Keppra 1000 mg q.12 hours. 4. Continue lamotrigine 100 mg q.12 hours. 5. Increase activity as tolerated. Antelmo Foster M.D., M.S.P.H. Neurologist & Clinical Neurophysiologist ANTELMO FOSTER Oct 21, 2017 19:47
[2017-10-21 20:00] VITALS: BP 112/68
[2017-10-22] VITALS: BP 108/64
[2017-10-22 04:00] VITALS: BP 134/81
[2017-10-22 08:00] VITALS: BP 129/75
[2017-10-22] MEDS: cefTRIAXone 1 GM in NS 55 ML IVPB SCH (08:34)
[2017-10-22] MEDS: Heparin 5000 units/ml inj SUBQ SCH ×2 (08:36→20:43)
[2017-10-22] MEDS ORDERED: Lisinopril 2.5mg tab ORAL SCH (09:00)
--- NOTE | 2017-10-22 10:39 | General Progress Note ---
Assessment/Plan Problem List: (1) Left upper extremity swelling ICD Codes: M79.89 - Other specified soft tissue disorders SNOMED: 088962955 (2) Acute encephalopathy ICD Codes: G93.40 - Encephalopathy, unspecified SNOMED: 95473472, 676121355 (3) Electrolyte abnormality ICD Codes: E87.8 - Other disorders of electrolyte and fluid balance, not elsewhere classified SNOMED: 529998376 (4) Right sided weakness ICD Codes: R53.1 - Weakness SNOMED: 093596260 (5) UTI (urinary tract infection) ICD Codes: N39.0 - Urinary tract infection, site not specified SNOMED: 00105913 (6) Sepsis ICD Codes: A41.9 - Sepsis, unspecified organism SNOMED: 80472398 Status: stable Assessment/Plan adjust BP meds Start PO diet Urine culture DC marvin resume Rocephin from ER Gastric support Monitor WBSc and serum K K and Phos and Mag supp as needed PT OT St pain management ? DC in am Subjective ROS Limited/Unobtainable: No Constitutional: Reports: malaise Allergies: Coded Allergies: No Known Allergies (Unverified , 05/13/16) Objective Last 24 Hour Vital Signs Date Time Temp Pulse Resp B/P (MAP) Pulse Ox O2 Delivery O2 Flow Rate FiO2 10/22/17 09:33 98.3 10/22/17 08:34 98.3 10/22/17 08:32 129/75 10/22/17 08:00 98.3 72 18 129/75 100 Room Air 98.3 90 10/22/17 04:00 73 10/22/17 04:00 98.9 90 17 134/81 94 Room Air 98.9 90 10/22/17 00:00 98.5 88 18 108/64 95 Room Air 98.5 88 10/22/17 00:00 71 10/21/17 20:00 98.7 85 16 112/68 96 Room Air 98.7 85 10/21/17 20:00 81 10/21/17 16:00 97.7 90 20 122/70 95 Room Air 97.7 85 10/21/17 16:00 79 10/21/17 15:52 127/66 10/21/17 12:00 98.6 84 20 127/70 98 Room Air 98.6 85 10/21/17 12:00 70 Intake and Output 10/21/17 10/22/17 19:00 07:00 Intake Total 695 ml 120 ml Output Total 400 ml 500 ml Balance 295 ml -380 ml Intake Oral 140 ml 120 ml IV Total 555 ml Output Urine Total 400 ml 500 ml Height (Feet): 5 Height (Inches): 6.00 Weight (Pounds): 170 General Appearance: no apparent distress Cardiovascular: normal rate Respiratory/Chest: lungs clear Abdomen: soft SUE OCHOA Oct 22, 2017 10:39
[2017-10-22 12:00] VITALS: BP 125/70
--- NOTE | 2017-10-22 14:24 | Neurology Progress Note ---
Interim History Interim History Interim History Ms. Haro feels better. The mind is clearer. She feels stronger. She is able to express herself a little better. She denies any new neurologic symptoms. She specifically denies any increased weakness, numbness, visual problems or speech problems. Review of Systems Neuro Review of Systems Benign. Objective Physical Exam Last Vital Signs Date Time Temp Pulse Resp B/P (MAP) Pulse Ox O2 Delivery O2 Flow Rate FiO2 10/22/17 13:15 98.3 10/22/17 12:00 80 18 125/70 100 Room Air 90 10/19/17 13:01 2.0 Laboratory Tests Test 10/22/17 11:10 C-Reactive Protein, Quantitative 7.2 mg/dL (0.00-0.90) H Neurologic Exam Objective PHYSICAL EXAMINATION: GENERAL: She is a well-developed, well-nourished, black lady, lying in bed, in no acute distress. HEAD: Normocephalic and atraumatic with left frontotemporal craniotomy scar. EENT: Benign. NECK: No neck rigidity was observed. NEUROLOGICAL EXAMINATION: MENTAL STATUS EXAMINATION: She was awake and alert. She was oriented to self, 2018 and hospital. She did not know the exact date, month or the name of the hospital. She was significantly aphasic, making further mental status testing difficult. SPEECH: She had a mild dysarthria. LANGUAGE: She had an anterior > posterior aphasia. CRANIAL NERVE EXAMINATION: II: She had a right visual field deficit. III, IV & : External ocular movements were full and the pupils 3 mm in diameter, equal, round, regular, and reactive to light. V: She had normal facial sensations and the temporales, masseters, and pterygoids functioned normally. VII: She had right VII central facial paresis. VIII: She was able to hear well and had no nystagmus. IX: The palate moved symmetrically on phonation. X: She had no hoarseness of voice. XI: The sternocleidomastoids and trapezii functioned normally. XII: The tongue was in the midline without any fasciculations or atrophy. MOTOR SYSTEM: The tone was normal on the left side and increased with spasticity on the right side. Examination of muscle mass revealed significant wasting of the right upper extremity. Examination of power revealed G 5/5 power on the left side. On the right side, she had G 0/5 power in the upper extremity and G 3/5 power in the lower extremity except for G 2/5 in the iliopsoas. SENSORY EXAMINATION: She complained of altered sensations on the right. REFLEXES: 2+ on the right side and 1+ on the left side, at the biceps, triceps, brachioradialis, and knees. 0 at both ankles. The plantar response was extensor on the right and flexor on the left. COORDINATION: She performed well on [id number]-hczt and nrbi-[id number]-oyoo testing on the left side. She was unable to perform on the right side. STANCE & GAIT: Could not be tested. Impression/Recommendations Diagnostic Impression 1. Ms. 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 She was hospitalized on 10/19/17 for a fall and left-sided trauma, leukocytosis, mild elevation of troponin, abnormal electrolytes and chemistries including hypokalemia, hypomagnesemia, and hypophosphatemia, high lactate level and left wrist and forehead trauma. 2. She feels better. The mind is clearer. She feels stronger. She is able to express herself a little better. She denies any new neurologic symptoms. She specifically denies any increased weakness, numbness, visual problems or speech problems. 3. On neurological examination, at this time, she is significantly aphasic, and has cognitive problems - her cognitive function has stabilized. She also has a right hemiparesis involving the face, upper and lower extremities and brisker reflexes on the right side compared to the left with an extensor plantar response on the right side. She also has a right visual field deficit and a right hemisensory deficit. 4. A CT scan of the brain reveals a large area of encephalomalacia involving the left frontal and temporal regions - this is very similar to a CT of the brain done in February 2016. 5. The patient's history and neurologic examination are most compatible with a prior cerebral injury and a fall recently with no significant injury. The alteration in her mental state was most probably due to electrolyte imbalances and possibly an acute infectious process - and is improving. Recommendations 1. Continue present management. 2. Continue correction of metabolic imbalances and infection. 3. Continue Keppra 1000 mg q.12 hours. 4. Continue lamotrigine 100 mg q.12 hours. 5. Increase activity as tolerated. Antelmo Foster M.D., M.S.P.H. Neurologist & Clinical Neurophysiologist ANTELMO FOSTER Oct 22, 2017 14:24
[2017-10-22 16:00] VITALS: BP 134/74
[2017-10-22] MEDS ORDERED: traMADol 50mg tab ORAL PRN (17:00)
[2017-10-22] MEDS: Nitroglycerin Patch 0.4mg TDERMAL SCH (17:25)
[2017-10-22 20:05] VITALS: BP 140/79
[2017-10-23] VITALS: BP 125/72
[2017-10-23 04:00] VITALS: BP 143/74
[2017-10-23 07:04] LABS: ALANINE AMINOTRANSFERASE 23 U/L (12-78); ALBUMIN 2.8 G/DL (3.4-5.0); ALBUMIN/GLOBULIN RATIO 0.7 (1.0-2.7); ALKALINE PHOSPHATASE 117 U/L (46-116); ANION GAP 11 mmol/L (5-15); ASPARTATE AMINO TRANSFERASE 24 U/L (15-37); BILIRUBIN,TOTAL 0.6 MG/DL (0.2-1.0); BLOOD UREA NITROGEN 15 mg/dL (7-18); CALCIUM 8.9 MG/DL (8.5-10.1); CARBON DIOXIDE 25 MMOL/L (21-32); CHLORIDE 108 MMOL/L (98-107); CREATININE 0.7 MG/DL (0.55-1.30); PHOSPHORUS 3.5 MG/DL (2.5-4.9); POTASSIUM 3.1 MMOL/L (3.5-5.1); SODIUM 144 MMOL/L (136-145)
[2017-10-23 07:18] LABS: BASOPHILS % (AUTO) 1.3 % (0.0-2.0); EOSINOPHILS % (AUTO) 3.8 % (0.0-3.0); HEMOGLOBIN 13.6 G/DL (12.0-16.0); LYMPHOCYTES % (AUTO) 25.2 % (20.0-45.0); MEAN CORPUSCULAR VOLUME 91 FL (80-99); MONOCYTES % (AUTO) 9.8 % (1.0-10.0); PLATELET COUNT 212 K/UL (150-450); RED BLOOD COUNT 4.29 M/UL (4.20-5.40); RED CELL DISTRIBUTION WIDTH 11.6 % (11.6-14.8); WHITE BLOOD COUNT 6.7 K/UL (4.8-10.8)
--- NOTE | 2017-10-23 07:40 | General Progress Note ---
Assessment/Plan Problem List: (1) Left upper extremity swelling ICD Codes: M79.89 - Other specified soft tissue disorders SNOMED: 086962274 (2) Acute encephalopathy ICD Codes: G93.40 - Encephalopathy, unspecified SNOMED: 22973250, 779715963 (3) Electrolyte abnormality ICD Codes: E87.8 - Other disorders of electrolyte and fluid balance, not elsewhere classified SNOMED: 358549609 (4) Right sided weakness ICD Codes: R53.1 - Weakness SNOMED: 585595311 (5) UTI (urinary tract infection) ICD Codes: N39.0 - Urinary tract infection, site not specified SNOMED: 56797756 (6) Sepsis ICD Codes: A41.9 - Sepsis, unspecified organism SNOMED: 91153363 Status: stable Assessment/Plan K supplement DC to ecf no major positive cultures will DC Antibiotic upon discharge adjust BP meds Urine culture gram + DC marvin resume Rocephin from ER Gastric support Monitor WBSc and serum K K and Phos and Mag supp as needed PT OT St pain management Subjective ROS Limited/Unobtainable: No Constitutional: Reports: malaise Allergies: Coded Allergies: No Known Allergies (Unverified , 05/13/16) Objective Last 24 Hour Vital Signs Date Time Temp Pulse Resp B/P (MAP) Pulse Ox O2 Delivery O2 Flow Rate FiO2 10/23/17 04:00 97.5 78 20 143/74 95 Room Air 97.5 78 10/23/17 00:00 97.5 79 20 125/72 95 Room Air 97.5 10/22/17 20:05 98.2 78 20 140/79 97 Room Air 98.2 75 10/22/17 19:06 98.0 10/22/17 18:07 98.0 10/22/17 17:25 134/74 10/22/17 16:00 98.0 79 18 134/74 100 Room Air 98.0 79 10/22/17 14:14 98.3 10/22/17 13:15 98.3 10/22/17 12:00 98.3 80 18 125/70 100 Room Air 98.3 90 10/22/17 09:33 98.3 10/22/17 08:34 98.3 10/22/17 08:32 129/75 10/22/17 08:00 72 10/22/17 08:00 98.3 72 18 129/75 100 Room Air 98.3 90 Intake and Output 10/22/17 10/23/17 19:00 07:00 Output Total 400 ml Balance -400 ml Output Urine Total 400 ml # Voids 2 Current Medications Medications (Trade) Dose Ordered Sig/Austyn Route PRN Reason Start Time Stop Time Status Last Admin Dose Admin Ceftriaxone Sodium 1 gm/ Sodium Chloride 55 ml @ 110 mls/hr Q24H IVPB 10/23/17 09:00 10/28/17 08:59 Clopidogrel Bisulfate (Plavix) 75 mg DAILY ORAL 10/23/17 09:00 11/19/17 08:59 Heparin Sodium (Porcine) (Heparin 5000 units/ml) 5,000 units EVERY 12 HOURS SUBQ 10/22/17 21:00 11/18/17 20:59 10/22/17 20:43 Ibuprofen (Motrin) 600 mg THREE TIMES A DAY ORAL 10/22/17 18:00 10/23/17 12:00 10/22/17 18:07 Lamotrigine (LaMICtal) 100 mg BID@09,21 ORAL 10/22/17 21:00 11/18/17 20:59 10/22/17 20:37 Lansoprazole (Prevacid) 30 mg BID ORAL 10/22/17 18:00 11/19/17 17:59 10/22/17 18:07 Levetiracetam (Keppra) 1,000 mg Q12HR ORAL 10/22/17 21:00 11/18/17 20:59 10/22/17 20:38 Lisinopril (Zestril) 5 mg DAILY ORAL 10/23/17 09:00 11/18/17 17:59 Nitroglycerin (Ntg) 1 patch Q24H TDERMAL 10/22/17 16:00 11/21/17 15:59 10/22/17 17:25 Tramadol HCl (Ultram) 50 mg Q6H PRN ORAL pain 5 and above 10/22/17 17:00 10/27/17 16:59 Laboratory Tests 10/22/17 11:10: C-Reactive Protein, Quantitative 7.2H 10/23/17 06:05: White Blood Count 6.7, Red Blood Count 4.29, Hemoglobin 13.6, Hematocrit 39.0, Mean Corpuscular Volume 91, Mean Corpuscular Hemoglobin 31.8H, Mean Corpuscular Hemoglobin Concent 34.9, Red Cell Distribution Width 11.6, Platelet Count 212, Mean Platelet Volume 7.5, Neutrophils (%) (Auto) 60.0, Lymphocytes (%) (Auto) 25.2, Monocytes (%) (Auto) 9.8, Eosinophils (%) (Auto) 3.8H, Basophils (%) (Auto ) 1.3, Sodium Level 144, Potassium Level 3.1L, Chloride Level 108H, Carbon Dioxide Level 25, Anion Gap 11, Blood Urea Nitrogen 15, Creatinine 0.7, Estimat Glomerular Filtration Rate > 60, Glucose Level 80, Calcium Level 8.9, Phosphorus Level 3.5, Magnesium Level 1.8, Total Bilirubin 0.6, Aspartate Amino Transf (AST/SGOT) 24, Alanine Aminotransferase (ALT/SGPT) 23, Alkaline Phosphatase 117H, Pro-B-Type Natriuretic Peptide [Pending], Total Protein 6.9, Albumin 2.8L, Globulin 4.1, Albumin/Globulin Ratio 0.7L Height (Feet): 5 Height (Inches): 6.00 Weight (Pounds): 189 General Appearance: no apparent distress Cardiovascular: normal rate Respiratory/Chest: lungs clear Abdomen: soft Objective no change SUE OCHOA Oct 23, 2017 07:40
[2017-10-23 08:00] VITALS: BP 138/73
[2017-10-23] MEDS ORDERED: IBUPROFEN600 MG ORAL (08:24)
[2017-10-23] MEDS ORDERED: NTG1 PATCH TDERMAL (08:24)
[2017-10-23] MEDS ORDERED: LISINOPRIL5 MG ORAL (08:24)
--- NOTE | 2017-10-23 08:25 | Discharge Instructions ---
Discharge Instructions Discharge Instructions Follow up with: fu by PMD Special Instructions PT OT eval routin skin care For Congestive Heart Failure Reminder Report to your physician any weight gain of 5 pounds or more in one week. SUE OCHOA Oct 23, 2017 08:25
[2017-10-23] MEDS ORDERED: cefTRIAXone 1 GM in NS 55 ML IVPB SCH (09:00)
[2017-10-23] MEDS ORDERED: cefTRIAXone 1 GM in D5W 55 ML IVPB ONE (09:00)
[2017-10-23] MEDS ORDERED: Lisinopril 2.5mg tab ORAL SCH (09:00)
[2017-10-23] MEDS: Heparin 5000 units/ml inj SUBQ SCH (09:06)
[2017-10-23 12:00] VITALS: BP 140/76
--- NOTE | 2017-10-23 14:55 | Neurology Progress Note ---
Interim History Interim History Interim History Ms. Haro feels better. " I want to go to my room - now!" The mind is clearer. She feels stronger. She is able to express herself a little better. She denies any new neurologic symptoms. She specifically denies any increased weakness, numbness, visual problems or speech problems. She says she is going back to her "home" today. Review of Systems Neuro Review of Systems Benign. Objective Physical Exam Last Vital Signs Date Time Temp Pulse Resp B/P (MAP) Pulse Ox O2 Delivery O2 Flow Rate FiO2 10/23/17 12:00 98.4 78 19 140/76 97 98.4 10/23/17 08:00 Room Air 10/19/17 13:01 2.0 Laboratory Tests Test 10/23/17 06:05 White Blood Count 6.7 K/UL (4.8-10.8) Red Blood Count 4.29 M/UL (4.20-5.40) Hemoglobin 13.6 G/DL (12.0-16.0) Hematocrit 39.0 % (37.0-47.0) Mean Corpuscular Volume 91 FL (80-99) Mean Corpuscular Hemoglobin 31.8 PG (27.0-31.0) H Mean Corpuscular Hemoglobin Concent 34.9 G/DL (32.0-36.0) Red Cell Distribution Width 11.6 % (11.6-14.8) Platelet Count 212 K/UL (150-450) Mean Platelet Volume 7.5 FL (6.5-10.1) Neutrophils (%) (Auto) 60.0 % (45.0-75.0) Lymphocytes (%) (Auto) 25.2 % (20.0-45.0) Monocytes (%) (Auto) 9.8 % (1.0-10.0) Eosinophils (%) (Auto) 3.8 % (0.0-3.0) H Basophils (%) (Auto) 1.3 % (0.0-2.0) Sodium Level 144 MMOL/L (136-145) Potassium Level 3.1 MMOL/L (3.5-5.1) L Chloride Level 108 MMOL/L (98-107) H Carbon Dioxide Level 25 MMOL/L (21-32) Anion Gap 11 mmol/L (5-15) Blood Urea Nitrogen 15 mg/dL (7-18) Creatinine 0.7 MG/DL (0.55-1.30) Estimat Glomerular Filtration Rate > 60 mL/min (>60) Glucose Level 80 MG/DL (74-106) Calcium Level 8.9 MG/DL (8.5-10.1) Phosphorus Level 3.5 MG/DL (2.5-4.9) Magnesium Level 1.8 MG/DL (1.8-2.4) Total Bilirubin 0.6 MG/DL (0.2-1.0) Aspartate Amino Transf (AST/SGOT) 24 U/L (15-37) Alanine Aminotransferase (ALT/SGPT) 23 U/L (12-78) Alkaline Phosphatase 117 U/L (46-116) H Pro-B-Type Natriuretic Peptide 145 pg/mL (0-125) H Total Protein 6.9 G/DL (6.4-8.2) Albumin 2.8 G/DL (3.4-5.0) L Globulin 4.1 g/dL Albumin/Globulin Ratio 0.7 (1.0-2.7) L Neurologic Exam Objective PHYSICAL EXAMINATION: GENERAL: She is a well-developed, well-nourished, black lady, lying in bed, in no acute distress. HEAD: Normocephalic and atraumatic with left frontotemporal craniotomy scar. EENT: Benign. NECK: No neck rigidity was observed. NEUROLOGICAL EXAMINATION: MENTAL STATUS EXAMINATION: She was awake and alert. She was oriented to self and hospital. She did not know the exact date, month, year or the name of the hospital. She was significantly aphasic, making further mental status testing difficult. SPEECH: She had a mild dysarthria. LANGUAGE: She had an anterior > posterior aphasia. CRANIAL NERVE EXAMINATION: II: She had a right visual field deficit. III, IV & : External ocular movements were full and the pupils 3 mm in diameter, equal, round, regular, and reactive to light. V: She had normal facial sensations and the temporales, masseters, and pterygoids functioned normally. VII: She had right VII central facial paresis. VIII: She was able to hear well and had no nystagmus. IX: The palate moved symmetrically on phonation. X: She had no hoarseness of voice. XI: The sternocleidomastoids and trapezii functioned normally. XII: The tongue was in the midline without any fasciculations or atrophy. MOTOR SYSTEM: The tone was normal on the left side and increased with spasticity on the right side. Examination of muscle mass revealed significant wasting of the right upper extremity. Examination of power revealed G 5/5 power on the left side. On the right side, she had G 0/5 power in the upper extremity and G 3/5 power in the lower extremity except for G 2/5 in the iliopsoas. SENSORY EXAMINATION: She complained of altered sensations on the right. REFLEXES: 2+ on the right side and 1+ on the left side, at the biceps, triceps, brachioradialis, and knees. 0 at both ankles. The plantar response was extensor on the right and flexor on the left. COORDINATION: She performed well on [id number] and [id number] testing on the left side. She was unable to perform on the right side. STANCE & GAIT: Could not be tested. Impression/Recommendations Diagnostic Impression 1. Ms. 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 She was hospitalized on 10/19/17 for a fall and left-sided trauma, leukocytosis, mild elevation of troponin, abnormal electrolytes and chemistries including hypokalemia, hypomagnesemia, and hypophosphatemia, high lactate level and left wrist and forehead trauma. 2. She feels better. She wants to go to her room - now. The mind is clearer. She feels stronger. She is able to express herself a little better. She denies any new neurologic symptoms. She specifically denies any increased weakness, numbness, visual problems or speech problems. She says she is going back to her "home" today. 3. On neurological examination, at this time, she is significantly aphasic, and has cognitive problems - her cognitive function has stabilized. She also has a right hemiparesis involving the face, upper and lower extremities and brisker reflexes on the right side compared to the left with an extensor plantar response on the right side. She also has a right visual field deficit and a right hemisensory deficit. 4. A CT scan of the brain reveals a large area of encephalomalacia involving the left frontal and temporal regions - this is very similar to a CT of the brain done in February 2016. 5. The patient's history and neurologic examination are most compatible with a prior cerebral injury and a fall recently with no significant injury. The alteration in her mental state was most probably due to electrolyte imbalances and possibly an acute infectious process - and is improving. Recommendations 1. Continue present management. 2. Continue correction of metabolic imbalances and infection. 3. Continue Keppra 1000 mg q.12 hours. 4. Continue lamotrigine 100 mg q.12 hours. 5. Increase activity as tolerated. Antelmo Foster M.D., M.S.P.H. Neurologist & Clinical Neurophysiologist ANTELMO FOSTER Oct 23, 2017 14:55
--- NOTE | 2017-10-23 15:29 | Cardiology Report ---
APPROVED REPORT EKG Measurement Heart [id number] Sinus tachycardia Possible Left atrial enlargement Possible Anterolateral infarct, age undetermined Abnormal ECG
[2017-10-23 16:00] VITALS: BP 141/82
[2017-10-23 16:11] VITALS: BP 141/82
[2017-10-23] MEDS: Nitroglycerin Patch 0.4mg TDERMAL SCH (16:11)
--- NOTE | 2017-10-24 06:55 | Discharge Summary ---
Discharge Summary Discharge Summary _ DATE OF ADMISSION: 10/19/2017 DATE OF DISCHARGE: 10/23/2017 CONSULTANTS: Dr. Anil Foster BRIEF HOSPITAL COURSE: Patient is a 61-year-old female, resident of [facility], was sent to emergency room reportedly after a fall, however, details of fall were not available. Patient has history of multiple medical problems, including seizure disorder, hypertension, previous craniotomy on the left leading to right-sided weakness, history of asthma, hypercholesterolemia and coronary artery disease. Patient was somewhat bedridden and was unable to give any history. She came in with a POLST stating DO NOT RESUSCITATE. On evaluation at ED, blood pressure was elevated, she was tachycardic and was febrile, temperature 100.1. Blood work did not show any leukocytoses however lactate was initially elevated to 3.7. Potassium was low, BUN and creatinine normal. Phosphorus 2.1, magnesium was 1.5. Troponin was 0.083. Urinalysis showed 15-20 RBC, 2-4 WBC, 2+ protein, 3+ occult blood, negative nitrite. EKG showed sinus tachycardia. Head CT did not show any intracranial hemorrhage, mass effect or acute infarct. There were aneurysm clips at the left carotid terminus and aneurysmal coil mass at the right with associated spray artifact; status post left sided craniotomy with areas of encephalomalacia and left wallerian degeneration noted. Left forearm x-ray did not show any fracture. She was then admitted for evaluation. She was placed on nothing by mouth except medications and was continued on antiseizure medication. She was given IV hydration and gastric support. She was given potassium phosphorus and technetium supplements. She underwent neurological evaluation with Dr. Foster. On neuro exam, a shunt was aphasic and has cognitive dysfunction. She had right hemiparesis on the face, upper and lower extremities; right visual field deficit and right hemisensory deficit. She was continued on Keppra 1000 mg every 12 hours and lamotrigine 100 mg twice a day. She was given Rocephin. Manuel catheter was discontinued. She was given Potassium, phosphorus and magnesium supplements. Alteration in mental status most probably due to electrolyte imbalance and possibly due to acute infectious process. Urine culture showed gram-positive cocci and lactobacillus. Blood culture did not isolate any growth. She was given PT OT and speech therapy. She was recommended cardiac moist pured diet with nectar thick liquids. Antibiotic was discontinued. [facility] FINAL DIAGNOSES: Sepsis, present on admission Acute toxic metabolic encephalopathy Urinary tract infection Status post left sided craniotomy and right sided weakness Seizure disorder Left upper extremity swelling, with no signs of fracture Hypophosphatemia Hypokalemia Hypomagnesemia DISPOSITION: Patient was discharged to [facility]. DISCHARGE MEDICATIONS: Refer to Discharge Medication List. I have been assigned to dictate discharge summary on this account, and I was not involved in the patient's management. Elke Fisher NP Oct 24, 2017 06:55
== END 2017-10-23 18:01 | DRG 871 ==
LOC: EDBD 06:57 → EMR 07:30 → 2E 08:50 → EDBEDREQ 11:49 → 4W 10-22 16:01
DX: A41.9 Sepsis, unspecified organism (principal); G92 Toxic encephalopathy; N39.0 Urinary tract infection, site not specified; I69.851 Hemiplegia and hemiparesis following other cerebrovascular disease affecting right dominant side; Z91.81 History of falling; Z66 Do not resuscitate; G40.909 Epilepsy, unspecified, not intractable, without status epilepticus; R22.9 Localized swelling, mass and lump, unspecified; E83.39 Other disorders of phosphorus metabolism; E87.6 Hypokalemia; E83.42 Hypomagnesemia
CPT/HCPCS: 36415; 70450; 71045; 80053; 80061; 80299; 81003; 82550; 82553; 82607; 82728; 82746; 82977; 83036; 83540; 83550; 83605; 83690; 83735; 83880; 84100; 84443; 84484; 84550; 85007; 85025; 86140; 87040; 87081; 87086; 87181; 93005; 96360; 96374; 96375; 99285; J8499

== ENCOUNTER 2019-07-15 07:23 | Emergency (ER) | payer MEDICAID, MEDICARE, OTHER ==
[~2019-07-15] VITALS: Ht 157.5 cm; Wt 59.0 kg
[~2019-07-15 07:23] MED LIST changes: +DICLOFENAC SODI25 GM TOPIC; +FLUOXETINE HCL40 MG ORAL; +HYDROCHLOROTHIA25 MG ORAL; +IBUPROFEN600 MG ORAL; +NTG1 PATCH TDERMAL; +WOMEN'S DAILY1 EACH PO
--- NOTE | 2019-07-15 08:24 | Emergency Room Report ---
History of Present Illness General Chief Complaint: Multiple Trauma/Fall Source: Medical Record, EMS Present Illness HPI This patient is brought in by EMS from a correction facility. The patient has a history of CVA with craniotomy. She has difficulty speaking and right hemiplegia at baseline. She was found on the ground status post fall at the correction facility. The patient had complained of some Right leg pain. The fall was not witnessed. The patient apparently does do some assisted walking with devices but is very unstable with right sided weakness. There are no other complaints. There is no report of recent illness. There is no loss of consciousness. The patient at this time has no specific complaints. COVID-19 risk:Travel to affect: No Has patient experienced lai: No Allergies: Coded Allergies: No Known Allergies (Unverified , 05/13/16) Patient History Past Medical History: see triage record, HTN, GERD, CVA/TIA, dementia, seizures Past Surgical History: other - craniectomy Social History: Denies: smoking, alcohol use, drug use Reviewed Nursing Documentation: PMH: Agreed; PSxH: Agreed Nursing Documentation-PMH Hx Hypertension: Yes Hx Pacemaker: No Hx Asthma: No Hx COPD: No Hx Cancer: No Hx Gastrointestinal Problems: Yes - GASTRITIS, UTI Hx Dialysis: No - S/P CRANIOTOMY Hx Cerebrovascular Accident: Yes - s/p craniotomy Hx Seizures: Yes Review of Systems All Other Systems: negative except mentioned in HPI Physical Exam Vital Signs Date Time Temp Pulse Resp B/P (MAP) Pulse Ox O2 Delivery O2 Flow Rate FiO2 07/15/19 07:20 98.4 58 18 170/68 (102) 98 Room Air Sp02 EP Interpretation: reviewed, normal General Appearance: no apparent distress, alert, GCS 15, non-toxic Head: normocephalic, atraumatic Eyes: bilateral eye normal inspection, bilateral eye PERRL ENT: hearing grossly normal, normal pharynx, no angioedema, normal voice Neck: full range of motion, supple/symm/no masses Respiratory: chest non-tender, lungs clear, normal breath sounds, no respiratory distress, no retraction, no accessory muscle use, speaking full sentences Cardiovascular #1: regular rate, rhythm, no edema Gastrointestinal: normal bowel sounds, non tender, soft, non-distended, no guarding, no rebound Rectal: deferred Musculoskeletal: other - At baseline. No evidence of trauma on exam. Neurologic: oriented, responsive, other - At baseline. R. hemiplegia Psychiatric: judgement/insight normal, memory normal, mood/affect normal, no suicidal/homicidal ideation Skin: no rash, normal color, other - See RN skin exam Medical Decision Making Diagnostic Impression: Primary Impression: Fall ER Course This patient is status post mechanical fall. Given her age, I did obtain a CT of the head which is unremarkable. She was complaining of pain in her entire right leg. I obtained bilateral hips, right femur, pelvis, right knee, right tib-fib and right ankle x-rays. There was no fracture identified. The patient was comfortable without significant pain. The patient is return to the correction facility in a stable condition. The patient is given close return precautions. Other X-Ray Diagnostic Results Other X-Ray Diagnostic Results : X-Ray ordered: Bilateral hips, pelvis, R. femur, R. knee, R. tib/fib, R. ankle. # of Views/Limited Vs Complete: Complete Indication: Pain EP Interpretation: Yes Interpretation: no fractures Impression: No acute disease PA Scribe Text See EMR. No fractures. CT/MRI/US Diagnostic Results CT/MRI/US Diagnostic Results : Imaging Test Ordered: CT head Impression No acute findings. Specifically no intracranial bleed, mass effect or edema. See official report. Last Vital Signs Date Time Temp Pulse Resp B/P (MAP) Pulse Ox O2 Delivery O2 Flow Rate FiO2 07/15/19 07:20 98.4 58 18 170/68 (102) 98 Room Air Disposition: HOME, SELF-CARE Condition: Improved Referrals: NON PHYSICIAN (PCP) Nisha Carter DO Jul 15, 2019 08:24
--- NOTE | 2019-07-15 09:24 | Diagnostic Imaging Report ---
Indication: Status post head trauma and fall. Found down. Technique: Contiguous 5 mm thick transaxial imaging of the head obtained in a Siemens Sensation [address] scanner. Soft tissue and bone windows generated. Automatic Exposure Control was utilized. Total Dose length Product (DLP): 1098.9mGycm CT Dose Index Volume (CTDIvol): 53.4 mGy Comparison: 10/19/2017 Findings: There is no change. There is a large areas of encephalomalacia in the left cerebrum involving the temporal lobe and part of the left frontal lobe. Left frontal temporal craniotomy noted. Aneurysm clips noted on the left side of the suprasellar cistern and thromboembolic coils in the right side of the suprasellar cistern are noted consistent with prior aneurysm treatment. There is no mass effect or edema appreciated. There is a additionally a small focus of encephalomalacia in the right frontal lobe. There is generalized atrophy of the cerebrum and cerebellum mild in degree. There is no evidence of acute hemorrhage. IMPRESSION: No evidence of acute intracranial hemorrhage, mass effect or edema. No significant change compared to baseline CT from 10/19/2017. Large area of encephalomalacia in the left temporal lobe and part of the left frontal lobe and adjacent white matter. Overlying left craniotomy noted. Small focus of encephalomalacia in the peramidline right frontal lobe. The CT scanner at [facility] is accredited by the [employer] and the scans are performed using dose optimization techniques as appropriate to a performed exam including Automatic Exposure control.
--- NOTE | 2019-07-15 11:57 | NUR ---
ED Nurse Note: [facility] here to pickup patient. Called [facility] at ([phone], report given to Olu RESENDIZ. She accepted the patient.
[2019-07-15 12:00] VITALS: BP 158/76
--- NOTE | 2019-07-15 12:31 | Diagnostic Imaging Report ---
Indication: Right thigh Pain Findings: 2 views of the right femur were obtained. No acute fractures, malalignment, erosions or periostitis are identified. Bones are osteopenic. Femoral artery calcification noted. Soft tissues are unremarkable. Impression: Negative examination of the femur
--- NOTE | 2019-07-15 12:32 | Diagnostic Imaging Report ---
Indications: hip pain Findings: 2 views of both hips were obtained. No obvious fracture identified. The bones are osteopenic. No malalignment seen. Both hip joints are narrow. IMPRESSION: No acute fracture identified
--- NOTE | 2019-07-15 12:32 | Diagnostic Imaging Report ---
Indication: right leg pain Comparison: None Findings: Two views of the right tibia and fibula were obtained. No acute fracture, malalignment, or periosteal reaction are identified as visualized. The bones are osteopenic. Soft tissues are unremarkable. Note: The study is considered incomplete as there is no lateral view of the lower tibia and ankle Impression: No acute findings as visualized. However study is incomplete because of patient refusal to continue with the study.
== END 2019-07-15 12:00 | disposition home or self-care (01) ==
LOC: EDBD 07:23 → EMR 07:45
DX: M79.604 Pain in right leg (principal); I10 Essential (primary) hypertension; G40.909 Epilepsy, unspecified, not intractable, without status epilepticus; K21.9 Gastro-esophageal reflux disease without esophagitis; F03.90 Unspecified dementia, unspecified severity, without behavioral disturbance, psychotic disturbance, mood disturbance, and anxiety; G81.91 Hemiplegia, unspecified affecting right dominant side
CPT/HCPCS: 70450; 73521; 99284